=== PATIENT | male | born 1965 | race Caucasian/White ===

== ENCOUNTER 2017-12-16 15:07 | Emergency (ER) | payer OTHER ==
[~2017-12-16] VITALS: Ht 165.1 cm; Wt 65.8 kg
[~2017-12-16 15:07] MED LIST: ACYC800 PO; ALBU90OI INH; ALCOHOL; AMOX500 PO; ASPI325 PO; Atrovent Inha12.9 GM INH; BENZ100A PO; Bactrim Ds Tab1 EACH PO; CEPH500 PO; CHLO25 PO; CIPR500 PO; CITA20 PO; CLIN300 PO; CLOBET30L TOP; CRUTCH3 USE; DICY20; GUAPHELA PO; GUAPSEER PO; HYDACE5 PO; HYDGUAL120 PO; IBUP400 PO; IBUP600 PO; INSLIS75I SC; Keflex500 MG PO; LORA.5 PO; LORA2 PO; MIRT15 PO; NAPR500 PO; NAPR550 PO; OLAN2.5 PO; OXYACE5T PO; PRED20 PO; PROCODE120 PO; PROM25 PO; Percocet 5-3251 EACH PO; RISP.25 PO; RISP1 PO; RISP2 PO; RISP3 PO; RISPERDAL PO; RXAMOX500 PO; RXHYDACE PO; RXHYDGUAS PO; RXOXYACE PO; RXSULTRIDS PO; SERT25 PO; SULTRIDS PO; TRAM50 PO; Ultram50 MG PO; ZOLP10 PO; Zithromax250 MG PO; Zoloft25 MG PO; Zyprexa10 MG PO; [UNRECOGNIZED DRUG - OTHER]
[2017-12-16] MEDS ORDERED: RISP3 PO (16:07)
[2017-12-16] MEDS ORDERED: QUET200 PO (16:08)
[2017-12-16] MEDS ORDERED: CEPH500 PO (16:11)
[2017-12-16] MEDS ORDERED: Bactrim Ds Tab1 EACH PO (16:11)
== END 2017-12-16 16:16 | disposition home or self-care (01) ==
LOC: ER 15:07
DX: L03.114 Cellulitis of left upper limb (principal); F41.9 Anxiety disorder, unspecified; F20.9 Schizophrenia, unspecified; Z79.899 Other long term (current) drug therapy
CPT/HCPCS: 99283

== ENCOUNTER 2018-03-28 15:25 | Observation (INO) | payer OTHER ==
[~2018-03-28] VITALS: Ht 162.6 cm; Wt 59.0 kg
[~2018-03-28 15:25] MED LIST changes: +QUET200 PO
[2018-03-28 16:52] LABS: BASOPHILS ABSOLUTE AUTO 0.02 K/mm3 (0.00-0.23); BASOPHILS PERCENT AUTO 0 % (0-2); EOSINOPHILS ABSOLUTE AUTO 0.11 K/mm3 (0.00-0.68); EOSINOPHILS PERCENT AUTO 1 % (0-6); Hematocrit 42.1 % (37.0-53.0); Hemoglobin 14.5 g/dL (13.5-17.5); IMMATURE GRAN ABSOLUTE AUTO 0.03 K/mm3 (0.00-0.10); IMMATURE GRAN PERCENT AUTO 0 % (0-1); LYMPHOCYTES ABSOLUTE AUTO 1.98 K/mm3 (0.84-5.20); LYMPHOCYTES PERCENT AUTO 26 % (21-46); MONOCYTES ABSOLUTE AUTO 0.56 K/mm3 (0.16-1.47); MONOCYTES PERCENT AUTO 7 % (4-13); Mean Corpuscular HGB 30.1 pg (26.0-34.0); Mean Corpuscular HGB Conc 34.4 g/dL (31.5-36.5); Mean Corpuscular Volume 87 fL (80-100); Mean Platelet Volume 9.1 fL (9.1-12.4); NEUTROPHILS ABSOLUTE AUTO 4.95 K/mm3 (1.96-9.15); NEUTROPHILS PERCENT AUTO 65 % (41-73); Platelet Count 264 K/mm3 (150-400); RDW Coefficient Variation 13.6 % (11.7-14.2); RDW Standard Deviation 43.8 fL (35.1-46.3); Red Blood Cell Count 4.82 M/mm3 (4.30-5.90); White Blood Cell Count 7.65 K/mm3 (4.00-11.30)
[2018-03-28 17:14] LABS: Alanine Aminotransfer (ALT/SGP 47 U/L (12-78); Albumin, Blood 3.8 g/dL (3.4-5.0); Albumin/Globulin Ratio 1.3 (0.8-1.8); Alk Phos 104 U/L (50-136); Anion Gap 8 mmol/L (6-16); Aspartate Aminotrans (AST/SGOT 30 U/L (12-37); Bilirubin, Total 1.5 mg/dL (0.1-1.0); Blood Urea Nitrogen 13 mg/dL (8-24); Bun/Creatinine Ratio 17.6 (12.0-20.0); CO2, Blood 25 mmol/L (21-32); Chloride, Blood 105 mmol/L (98-108); Creatinine, Blood 0.74 mg/dL (0.60-1.20); Ethanol (Alcohol), Blood, Med <3 mg/dL; Glomerular Filtration Rate >60 (60-); Glucose, Blood 107 mg/dL (70-99); Potassium, Blood 3.4 mmol/L (3.5-5.5); Salicylate <1.7 mg/dL (2.8-20.0); Sodium, Blood 138 mmol/L (136-145); Total Protein, Blood 6.8 g/dL (6.4-8.2)
[2018-03-28 17:18] LABS: Thyroid Stimulating Hormone 0.684 uIU/mL (0.360-4.800)
[2018-03-28 17:51] LABS: Source, Urine Voided
[2018-03-28 17:54] LABS: Acetaminophen, Random <2.0 ug/mL (10.0-30.0)
[2018-03-28 17:57] LABS: Bilirubin, Urine Neg (Neg); Blood, Urine Neg (Neg); Glucose Qualitative, Urine Neg (Neg); Ketones, Urine Neg (Neg); Leukocyte Esterase, Urine Neg (Neg); Nitrite, Urine Neg (Neg); Protein, Urine Neg (Neg); Specific Gravity, Urine 1.005 (1.003-1.022); Urobilinogen, Urine NORM (Normal); pH, Urine 6.5 (5.0-8.0)
[2018-03-28 18:25] LABS: U Cannabinoids Screen DETECTED
[2018-03-28 18:26] LABS: U Amphetamine Screen DETECTED; U Barbituate Screen Not Detected; U Benzodiazapine Screen DETECTED; U Buprenorphine Screen Not Detected; U Cocaine Screen Not Detected; U Methadone Screen Not Detected; U Methamphetamine Screen DETECTED; U Opiates Screen Not Detected; U Oxycodone Screen Not Detected; U Phencyclidine Screen Not Detected; U Propoxyphene Screen Not Detected
[2018-03-28 18:27] LABS: Appearance, Urine Clear (Clear); Color, Urine Yellow (P-Yellow)
== END 2018-03-30 11:53 | disposition home or self-care (01) ==
LOC: ER 15:25 → EOR 15:26
PROVIDERS: Emergency Medicine
DX: F20.9 Schizophrenia, unspecified (principal); F15.129 Other stimulant abuse with intoxication, unspecified; F41.9 Anxiety disorder, unspecified; F17.210 Nicotine dependence, cigarettes, uncomplicated; Z79.899 Other long term (current) drug therapy
CPT/HCPCS: 36415; 80053; 81003; 84443; 85025; 99285; G0378; G0480; Q3014

== ENCOUNTER 2018-04-19 16:19 | Emergency (ER) | payer OTHER ==
[~2018-04-19] VITALS: Ht 162.6 cm; Wt 61.2 kg
[2018-04-19] MEDS ORDERED: Seroquel400 MG PO (16:38)
[2018-04-19] MEDS ORDERED: QUET300 PO (16:38)
== END 2018-04-19 17:14 | disposition home or self-care (01) ==
LOC: ER 16:19
DX: F20.9 Schizophrenia, unspecified (principal); J44.9 Chronic obstructive pulmonary disease, unspecified; F17.210 Nicotine dependence, cigarettes, uncomplicated; Z59.0 Homelessness; Z79.899 Other long term (current) drug therapy
CPT/HCPCS: 99285